=== PATIENT | male | born 1960 | race Caucasian/White ===

== ENCOUNTER 2021-01-21 19:27 | Emergency (ER) | payer OTHER, BC, SELFPAY ==
[~2021-01-21] VITALS: Ht 177.8 cm; Wt 68.0 kg
[2021-01-21 19:30] VITALS: BP_SYST 101
[2021-01-21] MEDS ORDERED: DOCU-144 PO (19:50)
[2021-01-21] MEDS ORDERED: SYN50 PO (19:50)
[2021-01-21] MEDS ORDERED: CRAN450T9 PO (19:50)
[2021-01-21] MEDS ORDERED: DONE10TA44 PO (19:50)
[2021-01-21] MEDS ORDERED: CLOZ100T32 PO ×2 (19:50)
[2021-01-21] MEDS ORDERED: BENZ2TAB65 PO (19:50)
[2021-01-21] MEDS ORDERED: OXCA150T5 PO (19:50)
[2021-01-21] MEDS ORDERED: MOM PO (19:50)
[2021-01-21] MEDS ORDERED: ACET325T53 PO (19:50)
[2021-01-21] MEDS ORDERED: ACET-2634 PO (19:50)
[2021-01-21] MEDS ORDERED: MELA3TAB69 PO (19:50)
[2021-01-21] MEDS ORDERED: FLEETMO RC (19:50)
[2021-01-21] MEDS ORDERED: BISA5TAB10 RC (19:50)
[2021-01-21] MEDS ORDERED: MULT-1100 PO (19:50)
[2021-01-21] MEDS ORDERED: DEPS125 PO (19:50)
[2021-01-21] MEDS ORDERED: ASPI-1393 PO (19:50)
[2021-01-21 19:58] LABS: BASOPHILS # (AUTO) 0.1 K/uL (0.0-0.2); EOSINOPHILS # (AUTO) 0.2 K/uL (0.0-0.4); EOSINOPHILS % (AUTO) 2.1 % (0.0-4.0); HEMATOCRIT 37.8 % (36-54); LYMPHOCYTES # (AUTO) 2.3 K/uL (1.0-5.5); LYMPHOCYTES % (AUTO) 23.2 % (20.5-51.5); MEAN CORPUSCULAR HEMOGLOBIN 30 pg (27-31); MEAN CORPUSCULAR HGB CONC 34 % (32-36); MEAN CORPUSCULAR VOLUME 87 fL (79.0-98.0); MONOCYTES # (AUTO) 0.4 K/uL (0.0-1.0); MONOCYTES % (AUTO) 4.5 % (1.7-9.3); NEUTROPHILS # (AUTO) 6.8 K/uL (1.8-7.7); NEUTROPHILS % (AUTO) 69.2 % (40.0-70.0); PLATELET COUNT (AUTO) 205 K/uL (130-430); RED BLOOD CELL COUNT(AUTO) 4.32 MIL/uL (4.2-6.2); RED CELL DISTRIBUTION WIDTH 17.2 % (9.0-15.0); WHITE BLOOD COUNT (AUTO) 9.8 K/uL (4.8-10.8)
[2021-01-21 20:07] LABS: ANION GAP 8 (5-15); CALCIUM 8.6 mg/dL (8.4-11.0); CHLORIDE 108 mmol/L (98-107); CREATININE 1.09 mg/dL (0.55-1.30); GLUCOSE 129 mg/dL (70-99); SODIUM SERUM 144 mmol/L (136-145); UREA NITROGEN, BLOOD 28 mg/dL (8-21)
[2021-01-21 20:12] LABS: GFR AFRICAN AMERICAN 89 mL/min (>90)
[2021-01-21 20:13] LABS: ACETAMINOPHEN < 1 ug/mL (1-30); ALANINE AMINOTRANSFERASE 14 U/L (12-78); ALCOHOL, BLOOD < 3 mg/dL (<10); ASPARTATE AMINOTRANSFERASE 15 U/L (10-37); TOTAL BILIRUBIN 0.2 mg/dL (0.0-1.0)
[2021-01-21 20:18] LABS: CHOLESTEROL 159 mg/dL (<200); HDL CHOLESTEROL 49 mg/dL (>45); LDL CHOLESTEROL 87 mg/dL (<100); TRIGLYCERIDES 199 mg/dL (30-150)
[2021-01-21 20:50] VITALS: BP_SYST 118
== END 2021-01-21 20:50 ==
LOC: SED 19:27
DX: R45.6 Violent behavior (principal); Z20.822 Contact with and (suspected) exposure to COVID-19; Z88.0 Allergy status to penicillin; Z88.2 Allergy status to sulfonamides; Z79.899 Other long term (current) drug therapy
CPT/HCPCS: 36415; 80053; 80061; 83036; 85025; 87081; 87426; 99285; G0480; G0481; G0482